=== PATIENT | male | born 1985 | race Caucasian/White ===

== ENCOUNTER 2020-04-21 14:01 | Inpatient (IN) ==
[2020-04-21] MEDS ORDERED: ONDANSETRON INJ 2 MG/ML 2 ML VIAL IV PRN (18:25)
[2020-04-21] MEDS ORDERED: LORazepam 1 MG/2 ML VIAL IV PRN (18:25)
[2020-04-21] MEDS ORDERED: LORazepam 1 MG TAB PO PRN (18:25)
[2020-04-21] MEDS ORDERED: HYDROmorphone INJ 0.5 MG/0.5 ML SYR IV PRN ×2 (18:25)
[2020-04-21] MEDS ORDERED: PROMETHAZINE HCL 12.5 MG in SODIUM CHLORIDE 0.9% 50 ML IV PRN (18:25)
[2020-04-21] MEDS ORDERED: METOCLOPRAMIDE HCL INJ 5 MG/ML 2 ML VIAL IV PRN (18:25)
[2020-04-21] MEDS ORDERED: traMADol HCL 50 MG TABLET PO PRN ×2 (18:25)
[2020-04-21] MEDS ORDERED: oxyCODONE HCL IR 5 MG TAB (IMMEDIATE RELEASE) PO PRN ×2 (18:25)
[2020-04-21] MEDS ORDERED: ONDANSETRON 4 MG OD TAB PO PRN (18:25)
[2020-04-21 19:50] LABS: Basophils # (auto) 0.01 K/uL (0-0.2); Basophils % (auto) 0.1 %; Eosinophils # (auto) 0.03 K/uL (0-0.5); Eosinophils % (auto) 0.3 %; Hematocrit (blood only) 43.5 % (42-52); Hemoglobin 15.3 g/dL (14.0-18.0); Immature Granulocytes # (auto) 0.02 K/uL (0.00-0.02); Immature Granulocytes % (auto) 0.2 %; Lymphocytes # (auto) 1.79 K/uL (1.2-3.4); Lymphocytes % (auto) 19.6 %; Mean Corpuscular Hemoglobin 31.2 pg (25-34); Mean Corpuscular Hgb Conc 35.2 g/dL (32-36); Mean Corpuscular Volume 88.8 fL (80-100); Mean Platelet Volume 9.7 fL (7.4-10.4); Monocytes # (auto) 0.93 K/uL (0.11-0.59); Monocytes % (auto) 10.2 %; Neutrophils # (auto) 6.37 K/uL (1.4-6.5); Neutrophils % (auto) 69.6 %; Platelet Count 291 K/uL (130-400); RDW Coefficient of Variation 12.1 % (11.5-14.5); RDW Standard Deviation 38.7 fL (36.4-46.3); White Blood Count 9.15 K/uL (4.8-10.8)
[2020-04-21 20:08] LABS: Albumin Level 4.4 gm/dl (3.4-5.0); Calcium 9.9 mg/dl (8.5-10.1); Creatinine Clr Calc Pharmacy 61.7 ml/min; Est GFR (Non-African American) 69.9
[2020-04-21 20:12] LABS: Albumin Globulin Ratio 1.2 (0.9-2); Bilirubin,Total 1.1 mg/dl (0.2-1); Globulin 3.8 gm/dl (2.5-4.0); Total Protein 8.2 gm/dl (6.4-8.2)
[2020-04-21] MEDS: LACTATED RINGER'S 1,000 ML IV SCH (20:56)
[2020-04-21] MEDS: dexAMETHasone 8 MG in SYRINGE 0 ML IV SCH (20:56)
[2020-04-22] MEDS: dexAMETHasone 8 MG in SYRINGE 0 ML IV SCH ×2 (05:12→13:17)
[2020-04-22] MEDS ORDERED: ceFAZolin 2000MG 2,000 MG/15 ML SYR IV SCH (06:00)
--- NOTE | 2020-04-22 06:48 | Anesthesiology Consultation ---
Date of Service April 22, 2020 Assessment & Plan (1) Encounter for pre-operative examination: Chart Review Chart Review: Acceptable Risk for Surgery and Patient NOT seen in Pre Admission Testing Consults Requested none Proposed Anesthesia Risk / Benefits Reviewed With: PT / POA / Parent / Guardian, Accepts Plan and Informed Consent Obtained History Surgery Operation Date: 04/22/20 07:45 Proposed Procedures p Anterior Cervical Corpectomy C6 - Agustin Nguyen, DO Height/Weight Height: 5 ft 7 in Weight: 55.3 kg Allergies Allergy/AdvReac Type Severity Reaction Status Date / Time No Known Allergies Allergy Verified 04/21/20 14:59 Medications Home Medications Medication Instructions Recorded Confirmed Last Taken amiloride 5 mg PO BID 04/21/20 04/21/20 04/20/20 hydrochlorothiazide 25 mg PO QAM 04/21/20 04/21/20 04/20/20 potassium chloride 50 meq PO TID 04/21/20 04/21/20 04/20/20 Active Medications Generic Name Dose Route Start Last Admin Trade Name Freq PRN Reason Stop Dose Admin Lactated Ringer's 1,000 mls @ 75 mls/hr 04/21/20 18:25 04/21/20 20:56 Lr IV 05/21/20 18:24 75 mls/hr .[id number] BUCK Administration Dexamethasone 8 mg/ Syringe 2 mls @ 1 mls/min 04/21/20 20:00 04/22/20 05:12 IV 04/22/20 12:01 1 mls/min Q8H BUCK Administration NPO Date Last Intake of Fluids: 04/21/20 Time Last Intake of Fluids: 23:59 Date Last Intake of Solids: 04/21/20 Time Last Intake of Solids: 23:59 Past Medical History Medical History Anxiety Attention deficit disorder (ADD) Bartters syndrome Depression Kidney stones Peripheral neuropathy Recent weight loss Exercise / Class Metabolic Activity II 4-5 Yardwork/Stairs/Walk up hill Negative for chest pain or shortness of breath. Past Surgical History Surgical History History of facial surgery History of hernia surgery Past Anesthesia History No Hx of Anesthesia Complications History of PONV No Hx of PONV and No Hx of Motion Sickness Social History Smoking Status: Never smoker Do You Dip or Chew Tobacco: No Hx Alcohol Use: No substance use type: marijuana Last Used Substance: Days (ago) Review of Systems Patient denies active symptoms of GERD. Physical Exam Vital Signs Last Vital Signs Temp 36.8 C 04/22/20 06:38 Pulse 101 H 04/22/20 06:38 Resp 16 04/22/20 06:38 BP 136/92 04/22/20 06:38 Pulse Ox 97 04/22/20 06:38 Testing Laboratory Results 04/21/20 19:36 04/21/20 19:36
[2020-04-22] MEDS ORDERED: GLYCOPYRROLATE 0.2 MG/ML VIAL ONE (07:11)
[2020-04-22] MEDS ORDERED: LIDOCAINE HCL 2% 2 ML VIAL/AMP(20MG/ML) INFIL ONE (07:11)
[2020-04-22] MEDS ORDERED: NEOSTIGMINE METHYLSULFATE 1 MG/ML 10ML VIAL ONE (07:11)
[2020-04-22] MEDS ORDERED: PROPOFOL IV EMULSION 10 MG/ML 20 ML VIAL IV ONE (07:11)
[2020-04-22] MEDS ORDERED: ONDANSETRON INJ 2 MG/ML 2 ML VIAL ONE (07:11)
[2020-04-22] MEDS ORDERED: DEXAMETHASONE SOD INJ 4 MG/ML VIAL ONE (07:11)
[2020-04-22] MEDS ORDERED: fentaNYL citrate 100 MCG/2 ML VIAL ONE (07:12)
[2020-04-22] MEDS ORDERED: MIDAZOLAM HCL 1 MG/ML 2ML VIAL ONE (07:12)
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
[2020-04-22] MEDS ORDERED: BACITRACIN INJ 50,000 UNIT VIAL ONE (07:33)
[2020-04-22] MEDS ORDERED: HYDROmorphone INJ 2 MG/ML SYR/VIAL ONE (08:06)
[2020-04-22] MEDS ORDERED: FLOSEAL HEMOSTATIC MATRIX 10ML TOP ONE (08:25)
[2020-04-22] MEDS ORDERED: PROMETHAZINE HCL 12.5 MG in SODIUM CHLORIDE 0.9% 50 ML IV PRN ×2 (08:34→11:55)
[2020-04-22] MEDS ORDERED: ONDANSETRON INJ 2 MG/ML 2 ML VIAL IV PRN ×2 (08:34→11:55)
[2020-04-22] MEDS ORDERED: ATROPINE SULFATE 0.1 MG/ML 10ML SYR IV PRN (08:34)
[2020-04-22] MEDS ORDERED: ePHEDrine sulfate 50 MG/ML AMP IV PRN (08:34)
--- NOTE | 2020-04-22 10:11 | Operative Report ---
Post Operative Report Pre & Post Diagnosis Operation Date: 04/22/20 07:45 Pre-Op Diagnosis: CERVICAL MYELOPATHY Post-Op Diagnosis: CERVICAL MYELOPATHY I identified the patient and participated in the time-out.: Yes Procedure Operation Date: 04/22/20 07:45 Actual Procedures #1 anterior cervical corpectomy with bilateral foraminotomies C6. #2 anterior cervical discectomy with bilateral foraminotomies C4-C5. #3 anterior cervical arthrodesis C4-C5 and C5-C7. #4 placement of peek cage 7 mm in height at C4-5 and 20 mm in length at C5-C7. #5 placement of locally harvested morselized autograft combined with DBM and the interbody cages. #6 application of lozano plate and screws from C4-C7. Surgeon Agustin Nguyen, DO Sausage Tier Yaron Jones Estimated Blood Loss 10 Findings Consistent with Post-Op Diagnosis Specimens None Indications This is a 34-year-old male who presents my office yesterday afternoon with marked decline in neurologic status. MRI obtained the day prior demonstrates evidence of severe cervical spine stenosis with edema within the cord consistent with his neurologic findings. Subsequently he was admitted to the hospital that day for medical evaluation and plan for emergent anterior cervical decompression and fusion. Description of Procedure Patient was met with identified informed consent obtained. Patient was then taken to the operative suite underwent an patient placed in a supine position Alo table the head Schaefer head greenskeeper. All bony prominences well-padded eyes inspected to ensure no external pressure placed upon the. This point the anterior cervical spine was prepped and draped in a sterile fashion. Transverse incision was placed along the right anterior aspect of the cervical spine overlying the C5-6 disc base. Sharp dissection with the assistance of bipolar cautery was performed down to and exposing the anterior cervical spine from C4 to see 7. Self-retaining tractors was placed. Then performed a complete discectomy of C5-6 out to the uncovertebral joints bilaterally followed by C6- C7. I then performed a complete corpectomy of C5 including removal of all posterior annular fibers longitudinal ligament bilateral foraminotomies to address severe spinal stenosis. Endplates were then burred to subcortical bleeding bone and a 21 mm peek cage filled with locally harvested morselized autograft and DBM tapped in position. I then elected to address the C4-5 level. A complete discectomy was performed out to the uncovertebral joints bilaterally. I removed all posterior annular fibers performed bilateral foraminotomies to address the severe stenosis and then endplates burred to subcortical being bone and a 7 mm peek cage filled with locally harvested morselized autograft and DBM tapped in position. Distracting apparatus was removed all anterior osteophytes burred to a smooth cortical surface and a 5 complete screws applied with the assistance of fluoroscopy. The incision was then copiously irrigated explored to ensure no damage surrounding structures remaining bleeding. 10 round DEENA drain inserted. Was then closed with 2 Vicryl in a fashion of 4 Monocryl for final skin closure. Steri-Strip sterile dressings placed. Patient waken taken to PACU stable condition. Please note Yaron record was present at the entire procedure and all the patient positioning complex portions of the surgery and final skin closure. I attest to the content of the Intraoperative Record and any orders documented therein. Any exceptions are noted below.
--- NOTE | 2020-04-22 10:31 | Fluoroscopy Report ---
INTRAOPERATIVE RADIOGRAPHS CLINICAL HISTORY: C6 corpectomy and cervical spine fusion. Fluoroscopy time: 18 seconds. FINDINGS: 2 spot fluoroscopic views of the cervical spine are presented. There is evidence of corpect sue at C6 with anterior fusion from C4 -C7. The orthopedic hardware appears intact. Discectomy change is noted at C4-C5. The endotracheal tube is in place. IMPRESSION: Intraoperative images from C4-C7 spinal fusion as above. Electronically signed by: Paul Mejia M.D. 04/22/2020 10:29 AM
[2020-04-22] MEDS: fentaNYL citrate 100 MCG/2 ML VIAL IV PRN ×2 (10:44→10:49)
[2020-04-22] MEDS: HYDROmorphone INJ 2 MG/ML SYR/VIAL IV PRN ×2 (10:57→11:02)
[2020-04-22] MEDS ORDERED: HYDROmorphone INJ 1 MG/ML SYRINGE ONE (10:58)
[2020-04-22] MEDS ORDERED: oxyCODONE HCL IR 5 MG TAB (IMMEDIATE RELEASE) PO PRN (11:55)
[2020-04-22] MEDS ORDERED: traMADol HCL 50 MG TABLET PO PRN (11:55)
[2020-04-22] MEDS ORDERED: hydrOXYzine HCl 25 MG TAB PO PRN (11:55)
[2020-04-22] MEDS ORDERED: DO NOT ADMINISTER PNEUMOCOCCAL VACCINE PRN (11:55)
[2020-04-22] MEDS ORDERED: LORazepam 0.5 MG TAB PO PRN (11:55)
[2020-04-22] MEDS ORDERED: ACETAMINOPHEN 500 MG TAB PO PRN (11:55)
[2020-04-22] MEDS ORDERED: DO NOT ADMINISTER FLU VACCINE PRN (11:55)
[2020-04-22] MEDS ORDERED: ONDANSETRON 4 MG OD TAB PO PRN (11:55)
[2020-04-22] MEDS ORDERED: METOCLOPRAMIDE HCL INJ 5 MG/ML 2 ML VIAL IV PRN (11:55)
[2020-04-22] MEDS ORDERED: diphenhydrAMINE Capsule 25 MG CAP PO PRN (11:55)
[2020-04-22] MEDS ORDERED: HYDROmorphone INJ 1 MG/ML SYRINGE IV PRN (11:55)
[2020-04-22] MEDS ORDERED: LORazepam 0.5 MG/1 ML VIAL IV PRN (11:55)
[2020-04-22] MEDS ORDERED: SOD PHOSPHATE/SOD BIPHOSPHATE ENEMA 132 ML BTL PR PRN (11:55)
[2020-04-22] MEDS ORDERED: RACEPINEPHRINE 2.25% NEBU SOLN 0.5 ML VIAL INH PRN (11:55)
[2020-04-22] MEDS ORDERED: HYDROmorphone INJ 0.5 MG/0.5 ML SYR IV PRN (11:55)
[2020-04-22] MEDS ORDERED: ALUMINUM/MAGNESIUM SUSP 30 ML UDC PO PRN (11:55)
[2020-04-22] MEDS ORDERED: MAGNESIUM HYDROXIDE SUSP 30 ML UDC PO PRN (11:55)
[2020-04-22] MEDS ORDERED: DEXAMETHASONE SOD PHOSPHATE 8 MG in SYRINGE 0 ML IV PRN (11:55)
[2020-04-22] MEDS ORDERED: NALOXONE HCL 0.4 MG/1 ML VIAL/CARP IV PRN (11:55)
[2020-04-22] MEDS ORDERED: FAMOTIDINE 20 MG TAB PO PRN (11:55)
[2020-04-22] MEDS: LACTATED RINGER'S 1,000 ML IV SCH ×3 (12:03→23:51)
--- NOTE | 2020-04-22 12:47 | Anesthesiology Progress Note ---
Date of Service April 22, 2020 Anesthesia Post Procedure Vital Signs Vital Signs: Temp Pulse Pulse Pulse Resp BP BP 04/22/20 12:22 87 18 04/22/20 11:55 108 H 18 04/22/20 11:50 36.9 C 101 H 18 04/22/20 11:20 96 H 16 04/22/20 11:10 106 H 16 04/22/20 11:00 37.1 C 109 H 16 04/22/20 10:50 115 H 16 04/22/20 10:40 108 H 16 04/22/20 10:30 36.2 C L 121 H 16 04/22/20 06:38 36.8 C 101 H 16 136/92 04/22/20 06:06 36.9 C 98 H 16 130/87 04/21/20 23:10 36.9 C 91 H 18 133/87 04/21/20 18:31 36.8 C 98 H 16 153/100 H 04/21/20 17:24 78 18 130/88 04/21/20 16:00 74 16 125/86 04/21/20 14:04 36.7 C 110 H 18 141/112 H BP Pulse Ox 04/22/20 12:22 129/77 97 04/22/20 11:55 96 04/22/20 11:50 146/85 H 96 04/22/20 11:20 157/78 H 98 04/22/20 11:10 152/97 H 97 04/22/20 11:00 151/95 H 98 04/22/20 10:50 157/95 H 98 04/22/20 10:40 146/97 H 99 04/22/20 10:30 141/90 H 98 04/22/20 06:38 97 04/22/20 06:06 96 04/21/20 23:10 98 04/21/20 18:31 96 04/21/20 17:24 100 04/21/20 16:00 100 04/21/20 14:04 97 Pain Intensity Neck: Pain Intensity: 8 Transfer of Care Handoff Completed per policy Notes Mental Status: alert / awake / arousable and participated in evaluation Patient Amnestic to Procedure: Yes Nausea / Vomiting: adequately controlled Pain: adequately controlled Airway Patency, RR, SpO2: stable & adequate BP & HR: stable & adequate Hydration State: stable & adequate Anesthetic Complications: no major complications apparent and Pt Satisfied with anesthetic care
[2020-04-22] MEDS: DEXAMETHASONE SOD PHOSPHATE 6 MG in SYRINGE 0 ML IV SCH ×2 (13:16→20:05)
[2020-04-22] MEDS: POTASSIUM CHLORIDE CRTAB 20 MEQ TABCR PO SCH ×3 (13:18→20:00)
[2020-04-22] MEDS: ceFAZolin 1000MG 1,000 MG/7.5 ML SYR IV SCH ×2 (13:18→21:50)
--- NOTE | 2020-04-22 14:07 | Hospitalist Progress Note ---
Date of Service April 22, 2020 Assessment & Plan (1) Myelopathy concurrent with and due to spinal stenosis of cervical region: post op - appears to be improving jonna based on his hx of how he was feeling preop. continue current care/per orthopedics (2) Bartters syndrome: continue amiloride and HCTZ, KCL supplementation as below (3) Hypokalemia: a little lower than is his normal. PO he takes 50meq TID - which will be nearly impossible to replicate IV. fortunately he is not severely low and i suspect that as the day progresses his ability to tolerate PO will improve. to that end, have ordered 50meq KCL IV (5 x 10meq K riders) to be given starting now - but when/if his PO intake improves to where he can tolerate PO better, would switch from IV back to his home supplementation to allow for bigger dosing. repeat BMP along w mag in AM. will hold off on checking phos unless K is persistent problem/mag is low as well (4) Elevated bilirubin: outpt f/u (5) DVT prophylaxis: per ortho (SCDs) (6) Discharge planning issues: per ortho, although i anticipate his ability to go home once he is stable for discharge. Admission and Anticipated Discharge Date Admission Date: April 21, 2020 Subjective urgent Cspine surgery due to severe anatomic disease and markedly progressed pain seen post op - pain that he was having preop, and arm radiculopathy - all significantly better. notes sore throat, some nausea, feeling just generally a bit bad and groggy - but all in the realm of expected for surgery - nothing he's really noticing to be a significant problem. notes that he's quite certain he won't be able to stomach potassium right now w nausea - notes he generally can't without food in his stomach. recalls generally [id number]-normal potassium readings w barrters. occasional low mag but not a persistent thing that he remembers no sob. no other complaints or symptoms. Review of Systems Review of Systems: All systems reviewed & are unremarkable except as noted in HPI & below Physical Exam Physical Exam: gen aaox3 although a little groggy, nad heent nc at mmm cardio reg no r/m/g lungs cta b/l no r/r/w good effort skin no rashes no pallor or icterus abd soft nd nt no masses/guarding/rebound ext no c/c/e no calf tenderness (+) SCDs in place neuro no focal deficits Results & Data Results & Data ([facility]) Vital Signs (Past 12 Hours) Vital Signs Temp Pulse Pulse Resp BP BP Pulse Ox 04/22/20 13:52 90 18 140/93 98 04/22/20 13:02 97.3 F L 79 18 130/74 96 04/22/20 12:22 87 18 129/77 97 04/22/20 11:55 108 H 18 96 04/22/20 11:50 98.4 F 101 H 18 146/85 H 96 04/22/20 11:20 96 H 16 157/78 H 98 04/22/20 11:10 106 H 16 152/97 H 97 04/22/20 11:00 98.8 F 109 H 16 151/95 H 98 04/22/20 10:50 115 H 16 157/95 H 98 04/22/20 10:40 108 H 16 146/97 H 99 04/22/20 10:30 97.2 F L 121 H 16 141/90 H 98 04/22/20 06:38 98.2 F 101 H 16 136/92 97 04/22/20 06:06 98.4 F 98 H 16 130/87 96 PG Care Time/CCT Total # of Minutes Spent Total Time Spent with Patient: Total time spent is greater than 50% in coordination of care (as documented) at patient's floor/unit and/or counseling patient: Coding Level of Care Code 98972 Subseq Hosp Care Lvl 3 Diagnoses Myelopathy concurrent with and due to spinal stenosis of cervical region M48.02; G99.2 Bartters syndrome E26.81 Hypokalemia E87.6 Elevated bilirubin R17 DVT prophylaxis Z29.9 Discharge planning issues Z02.9
[2020-04-22] MEDS: POTASSIUM CHLORIDE / WTR 10 MEQ/100 ML PLCT IV SCH ×4 (14:19→18:38)
[2020-04-22] MEDS: ACETAMINOPHEN 1,000 MG/100 ML VIAL IV PRN (17:44)
[2020-04-22] MEDS ORDERED: POTASSIUM CHLORIDE / WTR 10 MEQ/100 ML PLCT IV ONE (19:00)
[2020-04-22] MEDS: DOCUSATE SODIUM/SENNA 50/8.6MG TAB PO SCH (20:05)
[2020-04-22] MEDS: aMILoride HCL 5 MG TAB PO SCH (20:05)
[2020-04-23] MEDS: ACETAMINOPHEN 1,000 MG/100 ML VIAL IV PRN (03:04)
[2020-04-23] MEDS: POLYETHYLENE (MIRALAX) 17 GM PACK PO SCH ×4 (04:40→21:53)
[2020-04-23] MEDS: DEXAMETHASONE SOD PHOSPHATE 6 MG in SYRINGE 0 ML IV SCH (04:40)
[2020-04-23 04:46] LABS: BUN Creatinine Ratio 18.7 (10-20); Calcium 8.8 mg/dl (8.5-10.1); Creatinine Clr Calc Pharmacy 66.2 ml/min; Est GFR (African American) 88.2; Est GFR (Non-African American) 76.1; Magnesium 1.7 mg/dl (1.8-2.4); Potassium 3.9 mmol/L (3.5-5.1)
[2020-04-23] MEDS ORDERED: MELATONIN 3 MG TAB PO PRN (18:21)
[2020-04-23] MEDS: hydroCHLOROthiazide 25 MG TAB PO SCH (19:38)
[2020-04-23] MEDS: POTASSIUM CHLORIDE CRTAB 20 MEQ TABCR PO SCH ×3 (19:38→21:53)
[2020-04-23] MEDS: aMILoride HCL 5 MG TAB PO SCH ×2 (19:38→21:53)
[2020-04-23] MEDS: DOCUSATE SODIUM/SENNA 50/8.6MG TAB PO SCH (21:53)
[2020-04-24] MEDS: POLYETHYLENE (MIRALAX) 17 GM PACK PO SCH ×2 (05:14→12:21)
--- NOTE | 2020-04-24 08:31 | Discharge Summary ---
Date of Service April 24, 2020 Admission HPI Per Admitting Provider This is a 34-year-old male who presents to my office yesterday afternoon with marked decline in neurologic status affecting his arms and lower extremities affecting balance coordination with severe cervicalgia radiating into the right shoulder and arm. MRI performed yesterday demonstrates evidence severe spinal stenosis with edema within the cord and subsequently admitted for emergent decompression. Discharge Data Allergies Allergy/AdvReac Type Severity Reaction Status Date / Time No Known Allergies Allergy Verified 04/21/20 14:59 Consultations 04/21/20 18:25 Consult Anesthesiology Routine 04/21/20 19:01 Consult Hospitalist Routine Procedures Performed Operation Date: 04/22/20 07:45 Actual Procedures p Anterior Cervical Corpectomy C6, C4-C5 Anterior Cervical Discectomy and Fusion(Not Applicable) - Agustin Nguyen, Ordered Studies 04/22/20 07:45 FL cervical 2-3V Routine FL fluoroscopy <1hr Routine Hospital Course (1) Myelopathy concurrent with and due to spinal stenosis of cervical region: post op - appears to be improving jonna based on his hx of how he was feeling preop. continue current care/per orthopedics (2) Bartters syndrome: continue amiloride and HCTZ, KCL supplementation as below (3) Hypokalemia: a little lower than is his normal. PO he takes 50meq TID - which will be nearly impossible to replicate IV. fortunately he is not severely low and i suspect that as the day progresses his ability to tolerate PO will improve. to that end, have ordered 50meq KCL IV (5 x 10meq K riders) to be given starting now - but when/if his PO intake improves to where he can tolerate PO better, would switch from IV back to his home supplementation to allow for bigger dosing. repeat BMP along w mag in AM. will hold off on checking phos unless K is persistent problem/mag is low as well (4) Elevated bilirubin: outpt f/u (5) DVT prophylaxis: per ortho (SCDs) (6) Discharge planning issues: per ortho, although i anticipate his ability to go home once he is stable for discharge. Discharge Plan Discharge Items Patient Disposition: Home - Self-Care Reason For Visit: CERVICAL MYELOPATHY Discharge Diagnosis: Cervical myelopathy Activity: As commented below Non-emergency contact: Primary Care Provider and Surgeon Call non-emergency contact if: you have any medication questions Follow-up/Referrals: Yaron Zamudio M.D. [Primary Care Provider] - Diet: Regular Addtl Attending Provider Instructions: ACTIVITY RECOMMENDATIONS: SELF CARE INSTRUCTIONS AFTER CERVICAL FUSIONS 1. No smoking. Smoking drastically decreases the chance of a solid fusion. 2. No bending, lifting more than 5 pounds, or twisting (roll like a log when turning in bed). 3. You may shower 3 days after surgery. Thoroughly dry wound. Do not soak in the tub. 4. Cervical collar: Must be worn at all times including sleeping. You may remove the brace only to bath, eat and if you are sitting in a recliner. 5. Please walk as much as you can for exercise. Gradually increase the distance that you walk as your endurance increases. SPECIAL CARE INSTRUCTIONS: VERY IMPORTANT TO READ AND REVIEW A. Do not take any anti-inflammatory medications (i.e. Indocin, Advil, Aspirin, Naprosyn, Aleve, Motrin, etc.) as these may inhibit the chance of a solid fusion. Tylenol is okay to take. B. Your surgical incision has been closed with a cosmetic suture under the skin that will dissolve in about 6 weeks. In 14 days, you can use a pair of clean scissors and cut the suture that is left outside of the skin at the ends of your incision. C. Complications are uncommon, but please contact us if you have any signs or symptoms of: 1. wound infection (fever higher than 102.5 degrees F, redness, separation of wound, drainage, or increasing pain from the incision) 2. blood clots in legs (pain, swelling, redness and warmth in legs) 3. urinary tract infection (fever higher than 102.5 degrees, burning upon urination or increased frequency of urination) 4. nerve problems (inability to walk on your toes or heels, numbness, loss of bowel or bladder control) 5. any other symptoms that concern you. D. Please call the office at if you have any concerns or questions about your operation or recovery. MANAGING PAIN AFTER SPINAL SURGERY 1. Narcotic medication is intended for short-term use and will be provided for surgical pain. Surgical pain usually lasts for a period of 4-6 weeks. Narcotic medication includes Percocet, Vicodin, Darvocet, Tylenol #3 or Lortab. 2. Longer-term pain is more appropriately treated with non-narcotic medication such as Tylenol ES. 3. Muscle spasm is not appropriately treated with narcotics. Muscle relaxers such as Soma, Flexeril or Skelaxin can be used along with Tylenol ES. 4. Remember that we all live with some "aches and pains". This is not unusual or uncommon after an injury or as we get older. 5. We will provide appropriate medication within the normal guidelines of their prescribed use. We will also be very cautious and aware of potential abuse and extended duration of patients' medication needs. 6. Please allow 2-3 days to process refills. Prescriptions will not be mailed but must be picked up at the office. FOLLOW UP VISIT: Keep your scheduled follow-up appointment. Any questions, please call the office at . Pending Studies at Discharge: No Stand-Alone Forms: My [employer], Smoking Cessation Medications and DC Order Prescriptions: New tramadol 50 mg tablet 50 mg PO Q6H PRN (Reason: pain, moderate) Qty: 20 RF: 0 oxycodone 5 mg tablet 5 mg PO Q6H PRN (Reason: pain, severe) Qty: 15 RF: 0 Continued amiloride 5 mg Tablet 5 mg PO BID RF: 0 hydrochlorothiazide 25 mg Tablet 25 mg PO QAM RF: 0 potassium chloride 10 mEq Tablet,Er Particles/Crystals 50 meq PO TID RF: 0 Admission Data Admit Date/Time: 04/21/20 15:03 Attending Provider: Agustin Nguyen Admit Provider: Agustin Nguyen Primary Care Provider: Yaron Zamudio Other Providers: Anatoliy Marie ; Abhilash Ramirez Resident Activity Tracking Resident Involvement: Resident Care Provided Care Provided: Adult Hospital Medicine
[2020-04-24] MEDS: POTASSIUM CHLORIDE CRTAB 20 MEQ TABCR PO SCH ×2 (08:35→13:37)
[2020-04-24] MEDS: aMILoride HCL 5 MG TAB PO SCH (08:35)
[2020-04-24] MEDS: hydroCHLOROthiazide 25 MG TAB PO SCH (08:35)
[2020-04-24] MEDS ORDERED: bisacodyL 10 MG SUPP PR PRN (10:12)
--- NOTE | 2020-04-24 10:57 | Hospitalist Progress Note ---
Date of Service April 24, 2020 Assessment & Plan (1) Myelopathy concurrent with and due to spinal stenosis of cervical region: Tano is a 34 yo M with a PMHx of cervical spinal stenosis who presented with acute worsening of his neck pain and upper extremity radicular symptoms. He was emergently taken to the OR by Dr. Nguyen for decompression. He is currently POD 2, pain well controlled with Tylenol. - dispo per ortho (2) Bartters syndrome: - continue home dose amiloride and HCTZ - continue home KCL supplementation as below - Cr 1.23 on 04/23 (3) Hypokalemia: - Level was 3.2 on 04/22 --> normalized to 3.9 on 04/23 - continue home dose of KCl, 50meq, PO, TID (4) Elevated bilirubin: - Total bilirubin level mildly elevated to 1.1 on admission - consider repeat as outpatient with direct and indirect breakdown - LFTs were WNL (5) DVT prophylaxis: per ortho (SCDs) (6) Discharge planning issues: - hospitalist will sign off on care at this time - medically stable, discharge per ortho Admission and Anticipated Discharge Date Admission Date: April 21, 2020 Supervising Physician Co-Signing Physician Notes Attending attestation Pt seen and examined in concert with Dr. Villanueva. In agreement with the documented findings as noted in the resident documentation with any exceptions or additions as noted here. Continued improvement in cervical radicular complaint and postoperative pain. On examination, S1/S2 nl RRR no MCG. CTAB. Abd NT/ND BS+ve Barter's syndrome - continue home amelioride and HCTZ with supplementation of electrolytes. Else see resident documentation as noted. Subjective Patient is POD 2 after cervical spine decompression - he is doing well. Pain is controlled with Tylenol only. He says he has not passed a BM since being in the hospital, but he has passed gas. Eating and drinking well. Review of Systems Review of Systems: All systems reviewed & are unremarkable except as noted in HPI & below Physical Exam Constitutional: WD/WN, vitals as above cooperative; no acute distress Eyes: + anicteric sclerae ENMT: external ear and nose normal, oropharynx normal Neck: normal visual inspection and trachea midline Wearing Cervical Spine firm collar Respiratory: normal respiratory effort, lungs clear to auscultation no cough Cardiovascular: RRR, no murmur, no edema Heart Sounds: normal S1 and normal S2 Gastrointestinal (Abdomen): normal bowel sounds, soft, nontender, no hepatosplenomegaly Skin: no rashes, warm and dry Psychiatric: A+Ox3, euthymic affect Results & Data Results & Data ([facility]) Vital Signs (Past 12 Hours) Vital Signs Temp Pulse Resp BP Pulse Ox 04/24/20 10:38 20 94 04/24/20 07:38 37 C 78 16 121/72 96 04/24/20 03:35 36.8 C 73 16 116/73 98 04/24/20 02:24 94 H 16 96 Resident Activity Tracking Resident Involvement: Resident Care Provided Care Provided: Adult Hospital Medicine
--- NOTE | 2020-04-24 11:24 | Discharge Summary ---
Date of Service April 24, 2020 Principal Diagnosis Cervical spinal stenosis with myelopathy Discharge Data Allergies Allergy/AdvReac Type Severity Reaction Status Date / Time No Known Allergies Allergy Verified 04/21/20 14:59 Consultations 04/21/20 18:25 Consult Anesthesiology Routine 04/21/20 19:01 Consult Hospitalist Routine Procedures Performed Operation Date: 04/22/20 07:45 Actual Procedures p Anterior Cervical Corpectomy C6, C4-C5 Anterior Cervical Discectomy and Fusion(Not Applicable) - Agustin Nguyen DO Ordered Studies 04/22/20 07:45 FL cervical 2-3V Routine FL fluoroscopy <1hr Routine Hospital Course (1) Myelopathy concurrent with and due to spinal stenosis of cervical region: Patient underwent anterior cervical corpectomy and ACDF tolerated so was taken to orthopedic for postoperative. Postop day #1 he was swallowing well no hoarseness. Arm symptoms were improved. Pain well controlled. On postop day #2 DEENA drain decreased appropriately. Continue to swallow well. Arm symptoms improving. Strength intact. Subsequently discharged home. Discharge orders instructions from the chart for further review. Total Time Total Time Spent Total Time Spent (In Minutes): 20 minutes Discharge Plan Discharge Items Patient Disposition: Home - Self-Care Reason For Visit: CERVICAL MYELOPATHY Discharge Diagnosis: Cervical myelopathy Activity: As commented below Non-emergency contact: Primary Care Provider and Surgeon Call non-emergency contact if: you have any medication questions Follow-up/Referrals: Yaron Zamudio M.D. [Primary Care Provider] - Diet: Regular Addtl Attending Provider Instructions: ACTIVITY RECOMMENDATIONS: SELF CARE INSTRUCTIONS AFTER CERVICAL FUSIONS 1. No smoking. Smoking drastically decreases the chance of a solid fusion. 2. No bending, lifting more than 5 pounds, or twisting (roll like a log when turning in bed). 3. You may shower 3 days after surgery. Thoroughly dry wound. Do not soak in the tub. 4. Cervical collar: Must be worn at all times including sleeping. You may remove the brace only to bath, eat and if you are sitting in a recliner. 5. Please walk as much as you can for exercise. Gradually increase the distance that you walk as your endurance increases. SPECIAL CARE INSTRUCTIONS: VERY IMPORTANT TO READ AND REVIEW A. Do not take any anti-inflammatory medications (i.e. Indocin, Advil, Aspirin, Naprosyn, Aleve, Motrin, etc.) as these may inhibit the chance of a solid fusion. Tylenol is okay to take. B. Your surgical incision has been closed with a cosmetic suture under the skin that will dissolve in about 6 weeks. In 14 days, you can use a pair of clean scissors and cut the suture that is left outside of the skin at the ends of your incision. C. Complications are uncommon, but please contact us if you have any signs or symptoms of: 1. wound infection (fever higher than 102.5 degrees F, redness, separation of wound, drainage, or increasing pain from the incision) 2. blood clots in legs (pain, swelling, redness and warmth in legs) 3. urinary tract infection (fever higher than 102.5 degrees, burning upon urination or increased frequency of urination) 4. nerve problems (inability to walk on your toes or heels, numbness, loss of bowel or bladder control) 5. any other symptoms that concern you. D. Please call the office at if you have any concerns or questions about your operation or recovery. MANAGING PAIN AFTER SPINAL SURGERY 1. Narcotic medication is intended for short-term use and will be provided for surgical pain. Surgical pain usually lasts for a period of 4-6 weeks. Narcotic medication includes Percocet, Vicodin, Darvocet, Tylenol #3 or Lortab. 2. Longer-term pain is more appropriately treated with non-narcotic medication such as Tylenol ES. 3. Muscle spasm is not appropriately treated with narcotics. Muscle relaxers such as Soma, Flexeril or Skelaxin can be used along with Tylenol ES. 4. Remember that we all live with some "aches and pains". This is not unusual or uncommon after an injury or as we get older. 5. We will provide appropriate medication within the normal guidelines of their prescribed use. We will also be very cautious and aware of potential abuse and extended duration of patients' medication needs. 6. Please allow 2-3 days to process refills. Prescriptions will not be mailed but must be picked up at the office. FOLLOW UP VISIT: Keep your scheduled follow-up appointment. Any questions, please call the office at . Pending Studies at Discharge: No Stand-Alone Forms: [employer], Smoking Cessation Medications and DC Order Prescriptions: New tramadol 50 mg tablet 50 mg PO Q6H PRN (Reason: pain, moderate) Qty: 20 RF: 0 oxycodone 5 mg tablet 5 mg PO Q6H PRN (Reason: pain, severe) Qty: 15 RF: 0 Continued amiloride 5 mg Tablet 5 mg PO BID RF: 0 hydrochlorothiazide 25 mg Tablet 25 mg PO QAM RF: 0 potassium chloride 10 mEq Tablet,Er Particles/Crystals 50 meq PO TID RF: 0 Discharge Orders: Discharge Order (Routine); Ordered 04/24/20 Ordered By: Agustin Nguyen Admission Data Admit Date/Time: 04/21/20 15:03 Attending Provider: Agustin Nguyen Admit Provider: Agustin Nguyen Primary Care Provider: Yaron Zamudio Other Providers: Anatoliy Marie Christophe R
== END 2020-04-24 14:17 | disposition home or self-care (01) | DRG 472 ==
LOC: ED 14:01 → 3E 15:03 → 3N 04-23 14:21 → UNDODISIN 04-23 14:21